=== PATIENT | male | born 1995 | race Caucasian/White ===

== ENCOUNTER 2016-11-08 19:59 | Emergency (ER) | payer BC, MEDICAID ==
[2016-11-08] MEDS ORDERED: Bacitracin Oint 1 GM U/D Packet TOP ONE (20:16)
--- NOTE | 2016-11-08 20:18 | EDM.PDOC ---
ED HPI GENERAL MEDICAL PROBLEM - General Chief Complaint: Laceration Stated Complaint: CUT FINGER Time Seen by Provider: 11/08/16 20:15 Source of Information: Reports: Patient History Limitations: Reports: No Limitations - History of Present Illness INITIAL COMMENTS - FREE TEXT/NARRATIVE: Shaan is an otherwise healthy 21-year-old male who presents to the emergency department today after sustaining a laceration to his finger working on his car. Patient states his tetanus is up-to-date, patient denies any other injuries. Onset: Today - Related Data Allergies Allergy/AdvReac Type Severity Reaction Status Date / Time No Known Allergies Allergy Verified 11/08/16 20:13 Home Meds: Home Meds NK [No Known Home Meds] 11/08/16 [History] Past Medical History Psychiatric History: Reports: Anxiety, Depression Endocrine/Metabolic History: Reports: Other (See Below) Other Endocrine/Metabolic History: hx hypoglycemia Dermatologic History: Reports: Cellulitis Social & Family History - Tobacco Use Smoking Status *Q: Former Smoker Years of Tobacco use: 6 Packs/Tins Daily: 0.5 Used Tobacco, but Quit: Yes Month Tobacco Last Used: 02/2015 - Alcohol Use Days Per Week of Alcohol Use: 3 Number of Drinks Per Day: 10 Total Drinks Per Week: 30 - Recreational Drug Use Recreational Drug Use: Yes Drug Use in Last 12 Months: Yes Recreational Drug Type: Reports: Methamphetamine Recreational Drug Use Frequency: Binges Recreational Drug Last Use: t-3 ED ROS GENERAL - Review of Systems Review Of Systems: See Below ED EXAM, SKIN/RASH Exam: See Below Exam Limited By: No Limitations General Appearance: Alert, WD/WN, No Apparent Distress Neck: Normal Inspection Respiratory/Chest: No Respiratory Distress Cardiovascular: Regular Rate, Rhythm Extremities: Normal Inspection, Normal Range of Motion, Normal Capillary Refill Neurological: Alert, Oriented Psychiatric: Normal Affect, Normal Mood Skin: Warm, Dry, Other (laceration, 1 cm dorsal aspect mid third digit right hand) Lymphatic: No Adenopathy ED SKIN PROCEDURES - Laceration/Wound Repair Right Middle Anterior Finger Appearance: Subcutaneous Distal NVT: Neuro & Vascular Intact Anesthetic Type: Local Local Anesthesia - Lidocaine (Xylocaine): 1% Plain Local Anesthetic Volume: 2cc Skin Prep: Chlorhexidine (Hibiciens), Saline, Sterile Drape Saline Irrigation (cc's): 50 Closed with: Sutures Suture Size: other (5-0) Suture Type: Interrupted (single layer closure), Other (Ethilon) Course - Vital Signs Last Recorded V/S: Last Vital Signs Temp 37 C 11/08/16 20:17 Pulse 59 L 11/08/16 20:17 Resp 14 11/08/16 20:17 BP 136/74 11/08/16 20:17 Pulse Ox 97 11/08/16 20:17 Shaan is a 21 year old male who presents to the ED today with c/o right 3rd digit laceration from an christen. Finger has full flexion/extension, no tendon involvement, lac repair done as noted above. Patient tolerated well. discussed wound care, dressed with bacitracin and dressing, patient discharged in stable condition, a total of 3 sutures were used. - Orders/Labs/Meds Meds: Medications Discontinued Medications Generic Name Dose Route Start Last Admin Trade Name Freq PRN Reason Stop Dose Admin Bacitracin 1 dose 11/08/16 20:16 Bacitracin Oint 1 Gm TOP 11/08/16 20:17 ONETIME ONE Lidocaine HCl 5 ml 11/08/16 20:16 Xylocaine-Mpf 1% INJECT 11/08/16 20:17 ONETIME ONE Departure - Departure Time of Disposition: 21:00 Disposition: Home, Self-Care 01 Condition: Good Clinical Impression: Finger laceration Qualifiers: Encounter type: initial encounter Finger: middle finger Damage to nail status: without damage Foreign body presence: without foreign body Laterality: right Qualified Code(s): S61.212A - Laceration without foreign body of right middle finger without damage to nail, initial encounter - Discharge Information Instructions: Laceration Care, Adult, [id number] Referrals: PCP,None [Primary Care Provider] - Forms: ED Department Discharge Additional Instructions: Keep wound clean and dry Bacitracin twice daily for 3 days. Suture removal in 7 days.
[2016-11-08 20:19] VITALS: BP 136/74
== END 2016-11-08 20:44 | disposition home or self-care (01) ==
LOC: JP.ED 19:59
DX: S61.212A Laceration without foreign body of right middle finger without damage to nail, initial encounter (principal); F41.9 Anxiety disorder, unspecified; F32.9 Major depressive disorder, single episode, unspecified; Z87.891 Personal history of nicotine dependence; X58.XXXA Exposure to other specified factors, initial encounter
CPT/HCPCS: 12001; 99283-25